=== PATIENT | male | born 1955 | race Caucasian/White ===

== ENCOUNTER 2025-05-06 08:38 | Outpatient (CLI) | payer MEDICARE, BC | END 2025-05-06 08:39 | disposition home or self-care (01) | LOC: CSHULT 08:38 | PROVIDERS: ATTEND Family Medicine | DX: R10.84 Generalized abdominal pain (principal); K80.20 Calculus of gallbladder without cholecystitis without obstruction; K76.0 Fatty (change of) liver, not elsewhere classified | CPT/HCPCS: 76700 ==